=== PATIENT | female | born 1980 | race Two or more races ===

== ENCOUNTER 2021-10-23 15:24 | Emergency (ER) | payer OTHER ==
[~2021-10-23] VITALS: Ht 165.1 cm; Wt 59.0 kg
== END 2021-10-23 18:29 | disposition home or self-care (01) ==
LOC: ER 15:24
DX: R42 Dizziness and giddiness (principal); E16.1 Other hypoglycemia; Z88.0 Allergy status to penicillin

== ENCOUNTER 2023-08-17 12:31 | Emergency (ER) | payer OTHER ==
[~2023-08-17] VITALS: Ht 167.6 cm; Wt 59.0 kg
[2023-08-17] MEDS ORDERED: ZOLOFT50 MG (12:48)
[2023-08-17 14:35] LABS: HEMATOCRIT 39.8 % (36.0-45.00); HEMOGLOBIN 13.9 g/dL (12.0-15.00); MEAN CELL VOLUME 91.3 fL (80.00-100.00); MEAN CORPUSCULAR HEMOGLOBIN 31.9 pg (27.00-32.0); MEAN CORPUSCULAR HGB CONC 34.9 g/dl (32.0-36.0); PLATELET COUNT 193 K/uL (150-450); RED BLOOD COUNT 4.36 M/uL (4.00-6.00); RED CELL DISTRIBUTION WIDTH 12.5 % (11.5-14.5)
[2023-08-17 16:06] LABS: CALCIUM 8.7 mg/dL (8.5-10.1); CREATININE SERUM 0.68 mg/dL (0.55-1.02); GFR 94.89; POTASSIUM 4.31 mEq/L (3.5-5.1)
== END 2023-08-17 16:58 | disposition home or self-care (01) ==
LOC: ER 12:31
PROVIDERS: General Practice
DX: K52.89 Other specified noninfective gastroenteritis and colitis (principal); Z88.0 Allergy status to penicillin